=== PATIENT | female | born 1995 | race African-American/Black ===

== ENCOUNTER 2018-06-09 11:58 | Emergency (ER) | payer SELFPAY ==
[~2018-06-09] VITALS: Ht 165.1 cm; Wt 54.5 kg
[2018-06-09] MEDS ORDERED: LORazepam 2 MG/ML, 1ML ONE (12:11)
[2018-06-09] MEDS: PLEASE ENTER HEIGHT AND WEIGHT MC SCH ×2 (12:17→12:22)
[2018-06-09 12:28] LABS: BASOPHILS # (AUTO) 0.04 x10^3/uL (0-0.3); BASOPHILS % (AUTO) 0 % (0-1); EOSINOPHILS # (AUTO) 0.02 x10^3/uL (0-0.8); EOSINOPHILS % (AUTO) 0 % (1-7); LYMPHOCYTES % (AUTO) 9 % (22-44); MD NO; MEAN CORPUSCULAR HEMOGLOBIN 26.6 pg (27.0-34.8); MEAN CORPUSCULAR HGB CONC 32.9 g/dL (32.4-35.8); MEAN CORPUSCULAR VOLUME 80.7 fL (80-100); MEAN PLATELET VOLUME 8.1 fL (7.4-10.4); MONOCYTES # (AUTO) 0.29 x10^3/uL (0-1.4); MONOCYTES % (AUTO) 2 % (2-9); NEUTROPHILS # (AUTO) 14.92 x10^3/uL (1.8-8.0); NEUTROPHILS % (AUTO) 89 % (42-75); PLATELET COUNT 399 x10^3/uL (130-400); RED BLOOD COUNT 5.34 x10^6/uL (3.82-5.3); RED CELL DISTRIBUTION WIDTH 14.1 % (9.6-15.2)
[2018-06-09] MEDS ORDERED: PLEASE ENTER ALLERGIES MC SCH (12:30)
[2018-06-09] MEDS ORDERED: LORazepam 2 MG/ML, 1ML IVPush ONE (12:30)
[2018-06-09 12:40] LABS: ALBUMIN 4.4 g/dL (3.4-5.0); ANION GAP 9 mmol/L (5-15); CALCIUM 9.5 mg/dL (8.5-10.1); CHLORIDE 108 mmol/L (98-107); CREATININE 0.78 mg/dL (0.55-1.02)
[2018-06-09 13:21] LABS: HCG UR SG 1.033 (1.003-1.030)
[2018-06-09 13:25] LABS: CULTURE INDICATED? YES; MICROSCOPIC INDICATED
[2018-06-09 13:29] LABS: AMPHETAMINE SCREEN, URINE Negative (Negative); BARBITURATE SCREEN, URINE Negative (Negative); BENZODIAZEPINE SCREEN, URINE Negative (Negative); CANNABINOID SCREEN, URINE Negative (Negative); METHADONE SCREEN, URINE Negative (Negative); OPIATE SCREEN, URINE Negative (Negative)
[2018-06-09 13:30] LABS: COCAINE SCREEN, URINE Negative (Negative)
[2018-06-09 14:05] VITALS: BP 113/71
== END 2018-06-09 14:11 | disposition home or self-care (01) ==
LOC: ED 14:05
DX: F41.1 Generalized anxiety disorder (principal); R06.4 Hyperventilation
CPT/HCPCS: 36415; 80048; 80307; 81001; 81025; 82040; 85025; 87086; 96374; 99284; J2060